=== PATIENT | female | born 1950 | race Caucasian/White ===

== ENCOUNTER → 2019-07-14 11:53 | Outpatient (CLI) | payer OTHER, SELFPAY ==
--- NOTE | ~2019-07-14 | XR_ITS ---
EXAMINATION: XR hip RT min 2V DATE: 07/14/2019 12:18 INDICATION: Right hip primary osteoarthritis. TECHNIQUE: 3 views of right hip were obtained. COMPARISON: Hip and pelvis radiographs 03/26/2013 FINDINGS: Bone alignment is normal. No fracture. There is severe lumbar spondylosis. There is mild ri ght hip osteoarthritis. IMPRESSION: 1. Mild right hip osteoarthritis. Reviewed, dictated and finalized at location A. RNET ASSESSOR
--- NOTE | ~2019-07-14 | XR_ITS ---
EXAMINATION: XR knee RT 3V DATE: 07/14/2019 12:18 INDICATION: Right knee osteoarthritis. TECHNIQUE: 4 views of right knee were obtained. COMPARISON: Right knee radiographs 01/08/2014 FINDINGS: Bone alignment is normal. No fracture. There is severe osteoarthritis of medial compartment and moderate osteoarthritis of lateral and patellofemoral compartments. No knee joint effusion. IMPRESSION: 1. Severe right knee osteoarthritis. Reviewed, dictated and finalized at location A. BI ARCHITECT
== END ==
PROVIDERS: PCP Internal Medicine; Visit Provider Internal Medicine
DX: M17.11 Unilateral primary osteoarthritis, right knee (principal); M16.11 Unilateral primary osteoarthritis, right hip
CPT/HCPCS: 73502; 73562

== ENCOUNTER 2020-01-07 10:36 | Outpatient (CLI) | payer OTHER, SELFPAY ==
[2020-01-07 11:06] LABS: Hematocrit 35.5 % (37.0-47.0); Hemoglobin 11.5 g/dL (12.0-15.0)
[2020-01-07 11:17] LABS: Albumin Level 4.3 g/dL (3.5-5.1); Estimated Glomerular Filt Rate > 60
== END 2020-01-07 10:37 | disposition home or self-care (01) ==
PROVIDERS: PCP Internal Medicine; Visit Provider Orthopaedic Surgery
DX: M17.11 Unilateral primary osteoarthritis, right knee (principal); Z01.812 Encounter for preprocedural laboratory examination
CPT/HCPCS: 36415; 82040; 82565; 85014; 85018

== ENCOUNTER 2020-01-27 11:57 | Outpatient (CLI) | payer OTHER, SELFPAY ==
--- NOTE | 2020-01-27 12:56 | ECG_ITS ---
Measurements Intervals [place] Rate: 68 P: 56 SD: 144 QRS: 7 QRSD: 84 T: 39 QT: 363 QTc: 388 Interpretive Statements SINUS RHYTHM BASELINE ARTIFACT- I, II, III, AVR, AVL, AVF NORMAL ECG Electronically Signed On 01-27-2020 13:12:40 CDT by Ad [place] D.O.
[2020-01-27 13:27] LABS: Basophils Absolute Auto 0.1 K/mm3 (0.0-0.1); Eosinophils Absolute Auto 0.1 K/mm3 (0-0.3); Eosinophils Percent Auto 1.1 % (0-4.4); Hematocrit 38.5 % (37.0-47.0); Hemoglobin 12.5 g/dL (12.0-15.0); Immature Granulocyte Absolute 0.02 K/mm3 (0.00-0.031); Immature Granulocyte Percent A 0.3 % (0-0.5); Lymphocytes Absolute Auto 1.96 K/mm3 (0.9-3.2); Mean Corpuscular HGB Conc 32.5 g/dl (32-36); Mean Corpuscular Hemoglobin 31.6 pg (26-34); Mean Corpuscular Volume 97.2 fl (80-100); Mean Platelet Volume 9.4 fl (7.4-10.4); Monocytes Absolute Auto 0.6 K/mm3 (0.1-0.6); Monocytes Percent Auto 8.6 % (2.6-8.5); Neutrophils Absolute Auto 4.3 K/mm3 (1.3-6.7); Platelet Count Result 335 k/mm3 (150-375); Red Blood Count 3.96 M/mm3 (4.2-5.4); Red Cell Distribution Width 12.3 % (11.5-14.5)
[2020-01-27 13:36] LABS: Urine Cotinine NEGATIVE
[2020-01-27 13:42] LABS: Albumin Level 4.4 g/dL (3.5-5.1); Glucose 89 mg/dL (65-105)
== END 2020-01-27 11:58 | disposition home or self-care (01) ==
LOC: ANHSURGERY 11:59
PROVIDERS: PCP Internal Medicine; Visit Provider Orthopaedic Surgery
DX: Z01.818 Encounter for other preprocedural examination (principal); M17.11 Unilateral primary osteoarthritis, right knee
CPT/HCPCS: 36415; 80307; 82040; 82947; 83036; 85025; 87081; 93005

== ENCOUNTER 2020-02-21 00:35 | Outpatient (CLI) | payer OTHER, SELFPAY ==
[2020-02-21 19:30] LABS: SARS-CoV-2 RNA PCR Negative
== END 2020-02-21 00:36 | disposition home or self-care (01) ==
LOC: ANHCOVIDDT 00:35
PROVIDERS: PCP Internal Medicine; Visit Provider Orthopaedic Surgery
DX: Z01.812 Encounter for preprocedural laboratory examination (principal); Z20.828 Contact with and (suspected) exposure to other viral communicable diseases
CPT/HCPCS: 87635; C9803; U0003

== ENCOUNTER 2020-02-24 00:51 | Day surgery (SDC) | payer OTHER, SELFPAY ==
[2020-01-27 12:28] VITALS: BP 156/70; PULSE 82; RESP 20; TEMP 36.6; O2SAT 100
[2020-01-27 12:57] VITALS: BMI 31.8
--- NOTE | 2020-02-23 08:54 | WPDANESEPPF ---
Anes - Initial Pre Proc Eval Procedure: Operation Date: 02/24/20 10:00 Proposed Procedures p Right Total Knee Arthroplasty - Gunnar Sherman MD Date/Time: 02/23/20 08:54 Surgeon: Gunnar Sherman MD Pre Op Diagnosis: Right Knee OA Patient Data Age: 69 Gender: F Height: 1.57 m Weight: 78.9 kg Last Vital Signs Temp 36.6 C 01/27/20 12:28 Pulse 82 01/27/20 12:28 Resp 20 01/27/20 12:28 BP 156/70 H 01/27/20 12:28 Pulse Ox 100 01/27/20 12:28 Allergies Allergy/AdvReac Type Severity Reaction Status Date / Time No Known Allergies Allergy Unverified 02/24/20 08:56 Home Medications Medication Instructions Recorded Confirmed Type lisinopril 20 mg tablet 20 mg PO DAILY #90 tablet 08/13/19 02/24/20 Rx naproxen 375 mg tablet See Rx Instructions .ROUTE 10/13/19 02/24/20 Rx .COMPLEX #180 tablet escitalopram oxalate 5 mg tablet 5 mg PO DAILY #90 tablet 11/18/19 02/24/20 Rx pravastatin 40 mg PO HS 01/27/20 02/24/20 History trazodone 50 mg PO HS 01/27/20 02/24/20 History Patient hx anesthesia problems: post op nausea/vomiting Family hx anesthesia problems: none PMFSH Past Medical History Medical History (Updated 02/23/20 @ 08:54 by Justin Urbina DO) Acute left-sided low back pain without sciatica Anxiety Closed displaced comminuted fracture of shaft of left humerus Essential (primary) hypertension Influenza A virus present Mixed hyperlipidemia Osteoarthritis of right hip PONV (postoperative nausea and vomiting) Surgical History Surgical History History of open reduction and internal fixation (ORIF) procedure Social History Social History Smoking status: Never smoker Second hand tobacco smoke exposure: No Alcohol intake: never Substance use: never Living arrangements: with family Spiritual care concerns: No Anes - Eval Final PreProcedure Day of Procedure 02/23/20 08:54 Patient weight: obese Heart: regular rate and rhythm Lungs: clear to auscultation and normal air movement Airway: Mallampati scale class II Neurological: alert and oriented Last oral intake: >/= 8 hours ASA classification: III Emergent: no Anesthetic plan: proceed Anesthesia type and monitoring: general LMA and standard monitoring Informed Consent: The patient's anesthetic plan and its attendant risks and benefits were discussed with the patient/family/POA. Questions were solicited and answers provided to the satisfaction of the patient/family/POA.
--- NOTE | 2020-02-23 08:55 | WPDANESPNB ---
Anes - Peripheral Nerve Block Date/Time: 02/23/20 08:55 I have discussed with the patient/family/POA the placement of a peripheral nerve block for post-operative pain management, including associated risks, benefits, complications, and side effects. Alternative methods of post-operative analgesia were detailed. Questions were solicited and answers provided to the satisfaction of the patient/family/POA. Time-Out: A pre-procedural Time-Out was completed immediately before starting the procedure and confirmed: Patient Identification, Site, Procedure, Patient Position and the Availability of Requisite Equipment. Clinical Indications: Acute post-operative pain management requested by the operative surgeon. Nerve Block Insertion Note Anes-nerve block: adductor canal right Patient position: supine Skin prep: chlorhexidine Needle: 22 gauge, stimulating, insulated echogenic needle. Needle length: 80 mm Technique: ultrasound Injectate: bupivacaine 0.5% with epi 5 mcg/ml (30cc) Observations: tolerated well Complications: none Procedure start time:: 1006 Procedure end time:: 1010
[2020-02-24] VITALS (13 sets, daily range): BP systolic 101–135; BP diastolic 42–73; PULSE 73–97; RESP 12–18; TEMP 35.9–36.9; O2SAT 89–100
--- NOTE | ~2020-02-24 | XR_ITS ---
EXAMINATION: XR knee RT 2V DATE: 02/24/2020 12:34 INDICATION: Right total knee arthroplasty. Postop. TECHNIQUE: 2 views of right knee were obtained. COMPARISON: Right knee radiographs 07/14/2019 FINDINGS: There is a total right knee arthroplasty with patellar resurfacing. Tibia demonstrates 8 de grees posterior angulation with respect to the tibial component. No fracture. There is gas in the kne e joint and soft tissues, consistent with recent surgery. IMPRESSION: 1. New total right knee arthroplasty. Reviewed, dictated and finalized at location B.
--- NOTE | 2020-02-24 07:14 | WPDHPUPDATE1 ---
History and Physical Update Update Date/Time: 02/24/20 07:14 History and Physical has been reviewed, including an updated exam of the patient. There are NO changes in the patient's condition. Risks, benefits, and alternatives have been discussed and questions answered. Patient agrees to proceed with procedure.
[2020-02-24] MEDS: TRANEXAMIC ACID 1,000MG/ISO100 1,000 MG/100 ML BAG 200 MG IVPB (08:48)
[2020-02-24] MEDS: LACTATED RINGERS 1,000 ML 30 ML IV CONT ×2 (08:50→12:21)
[2020-02-24] MEDS: ACETAMINOPHEN 500 MG TABLET 1000 MG PO (08:53)
[2020-02-24] MEDS: KETOROLAC 15 MG/ML VIAL (*BKC) IV PUSH (08:53)
[2020-02-24] MEDS: FAMOTIDINE 20 MG/2 ML VIAL IV PUSH (09:05)
[2020-02-24] MEDS: ceFAZolin 2 GM/D5W 50 ML 2 GM/50 ML BAG IVPB (10:21)
[2020-02-24] MEDS: GENTAMICIN BONE CEMENT REFOBACIN 1 EACH TOPICAL (10:49)
--- NOTE | 2020-02-24 12:42 | PM.PROC ---
Procedure Note - Detailed Date of procedure: 02/25/20 Pre-op diagnosis: Right Knee OA Post-op diagnosis: same Procedure performed: Total knee arthroplasty, right Implants: [place] [employer] size 3 cemented femur, size 4 cemented low-profile tibia, 13mm CS polyethylene insert, 32mm asymmetric all poly patellar component. Anesthesia: GETA and regional (subsartorial nerve block) Surgeon: Gunnar Sherman MD Estimated blood loss (mL): 200 Drains: No Complications: None Condition: stable Disposition: PACU Findings: OPERATIVE DETAILS: The patient was given a nerve block preoperatively, and then brought to the operating room. A general anesthetic was administered. The leg was prepped and draped in the usual sterile fashion. The limb was elevated and the tourniquet inflated to 300 mmHg during initial exposure, and cementation. A longitudinal incision was created along the medial border of the patella and patellar tendon, and a minimally invasive optimized mid-vastus approach to the knee was performed. A mild medial release was taken. The knee was then flexed. The osteophytes were carefully removed. The intramedullary guide was placed in the femoral canal. The distal femoral resection was then taken with the oscillating saw. The collateral ligaments were carefully protected. The tibia was carefully exposed. The jig was applied, and the proximal tibia was resected according to preoperative plan. The pain anesthetic mixture was injected into the periarticular tissues. The knee was balanced in extension, and appropriate releases were taken where needed. The anterior cruciate ligament and meniscal remnants were removed. The posterior cruciate ligament was preserved. The patella was measured. Patellar resection was carried out with the oscillating saw. The lug holes drilled. The femur was sized and rotation assessed using a combination of gap balancing, posterior referencing, and the AP axis. The 4 in 1 cutting block was used to finish the femoral cuts after equal gaps were assured. The lug holes were drilled. The osteophytes were carefully removed from the back of the knee. The knee was copiously irrigated with antibiotic solution periodically throughout the procedure. The spacer block was used to confirm equal flexion and extension gaps. Further releases were performed as needed. The tibia was sized and broached. The bony surfaces were prepared for cementing with pulsatile lavage. The real tibial component and femoral components were cemented into position. Excess cement was carefully removed. The polyethylene insert was placed. The patella component was subsequently cemented. Patellar tracking was carefully assessed. No additional releases were required. The wound was closed with #1 Vicryl suture, #2 Quill suture, 2-Gwisbc-yus suture, and 2-0 Strata-fix suture followed by Steri-Strips. A sterile bulky dressing was applied. Meticulous hemostasis was maintained throughout the procedure. There were no complications. The patient was extubated and brought to the recovery room in stable condition after the application of sterile dressing with Cam bandage.
--- NOTE | 2020-02-24 14:00 | ADMGEN ---
This patient, Rochelle Balderrama, was admitted to Medical Room 253-01. Patient/family oriented to hospital policies and general routines including ID bracelet, bed and alarms, visiting hours, pain management, procedures, bathroom and other care routines, personal items, smoking policy, room service/diet, and visiting hours. Valuables list has been completed. Information on how to activate the Rapid Response Team has been discussed. Patient/Family are encouraged to report perceived risks to care and to ask questions if they do not understand what they are told or what they should do.
[2020-02-24] MEDS: SODIUM CHLORIDE 0.9% IV 1,000 ML 125 ML IV CONT (14:30)
[2020-02-24] MEDS: ASPIRIN 81 MG ENTERIC TABLET PO (17:29)
[2020-02-24] MEDS: MELOXICAM 7.5 MG TABLET PO (17:29)
[2020-02-24] MEDS: DOCUSATE SODIUM 100 MG CAPSULE PO (17:29)
[2020-02-24] MEDS: traZODone HCL 50 MG TABLET PO (20:26)
[2020-02-24] MEDS: PRAVASTATIN SODIUM 20 MG TABLET 40 MG PO (20:26)
[2020-02-25] VITALS: BP 100/46; PULSE 70; RESP 18; TEMP 36.4; O2SAT 91
[2020-02-25 04:00] VITALS: BP 106/40; PULSE 76; RESP 18; TEMP 36.4; O2SAT 94
[2020-02-25 06:34] LABS: Basophils Percent Auto 0.2 % (0.2-1.2); Eosinophils Percent Auto 0.1 % (0-4.4); Hematocrit 26.9 % (37.0-47.0); Hemoglobin 8.6 g/dL (12.0-15.0); Immature Granulocyte Absolute 0.06 K/mm3 (0.00-0.031); Immature Granulocyte Percent A 0.5 % (0-0.5); Lymphocytes Absolute Auto 1.42 K/mm3 (0.9-3.2); Lymphocytes Percent Auto 12.6 % (18.3-44.2); Mean Corpuscular Hemoglobin 30.6 pg (26-34); Mean Corpuscular Volume 95.7 fl (80-100); Mean Platelet Volume 9.4 fl (7.4-10.4); Monocytes Absolute Auto 0.9 K/mm3 (0.1-0.6); Monocytes Percent Auto 8.2 % (2.6-8.5); Neutrophils Absolute Auto 8.8 K/mm3 (1.3-6.7); Neutrophils Percent Auto 78.4 % (45.5-73.1); Platelet Count Result 220 k/mm3 (150-375); Red Blood Count 2.81 M/mm3 (4.2-5.4); Red Cell Distribution Width 12.4 % (11.5-14.5); White Blood Count 11.3 K/mm3 (4.5-10.0)
[2020-02-25 06:54] LABS: Anion Gap 4 mmol/L (8-16); Blood Urea Nitrogen 15 mg/dL (7-17); Calcium 8.4 mg/dL (8.4-10.2); Carbon Dioxide 25 mmol/L (22-30); Chloride 103 mmol/L (98-107); Estimated CRCL calculation 70 ml/min; Estimated Glomerular Filt Rate > 60; Glucose 85 mg/dL (65-105); Potassium 4.1 mmol/L (3.4-5.0); Sodium 132 mmol/L (137-145)
[2020-02-25 08:46] VITALS: O2SAT 94
[2020-02-25] MEDS: MELOXICAM 7.5 MG TABLET PO (09:35)
[2020-02-25] MEDS: ESCITALOPRAM OXALATE 5 MG TABLET PO (09:35)
[2020-02-25] MEDS: ASPIRIN 81 MG ENTERIC TABLET PO (09:35)
[2020-02-25] MEDS: DOCUSATE SODIUM 100 MG CAPSULE PO (09:35)
[2020-02-25] MEDS: lisinopriL 20 MG TABLET PO (09:35)
[2020-02-25 09:53] VITALS: BP 100/77; PULSE 74; RESP 18; TEMP 36.7; O2SAT 97
--- NOTE | 2020-02-25 11:44 | WPDANESPN ---
Anes - Prog Note Post-Op Date/Time: 02/25/20 11:44 Cardiovascular status: normal Respiratory status: normal Airway patency: baseline Mental status: baseline Post-Op hydration status: normal Vital Signs: Last Vital Signs Temp 36.7 C 02/25/20 09:53 Pulse 74 02/25/20 09:53 Resp 18 02/25/20 09:53 BP 100/77 02/25/20 09:53 Pulse Ox 97 02/25/20 09:53 I/O: Intake & Output 02/24/20 02/25/20 02/25/20 23:59 07:59 15:59 Intake Total 1480 350 290 Output Total 200 300 Balance 1480 150 -10 Laboratory Tests 02/25/20 05:59 02/25/20 05:59 02/25/20 02/25/20 05:59 05:59 WBC 11.3 H RBC 2.81 L Hgb 8.6 L D Hct 26.9 L MCV 95.7 MCH 30.6 MCHC 32.0 RDW 12.4 Plt Count 220 MPV 9.4 Immature Gran % (Auto) 0.5 Neut % (Auto) 78.4 H Lymph % (Auto) 12.6 L [place] % (Auto) 8.2 Eos % (Auto) 0.1 Baso % (Auto) 0.2 Lymph # (Auto) 1.42 [place] # (Auto) 0.9 H Eos # (Auto) 0.0 Baso # (Auto) 0.0 Abs Immat Gran (auto) 0.06 H Absolute Neuts (auto) 8.8 H Absolute Nucleated RBC 0.0 Nucleated RBC % 0.0 Sodium 132 L Potassium 4.1 Chloride 103 Carbon Dioxide 25 Anion Gap 4 L BUN 15 Creatinine 0.60 L Estim Creat Clear Calc 70 Estimated GFR > 60 Glucose 85 Calcium 8.4 Post-procedural complaints: none Patient Feedback: Patient satisfied with anesthetic care.
--- NOTE | 2020-02-25 11:57 | PM.DS ---
DS: Admitting Diagnosis Admitting Diagnosis Admitting Diagnosis: Right Knee OA DS: Discharge Diagnosis Discharge Diagnosis (1) History of total replacement of right shoulder joint: Code(s): Z96.611 - Presence of right artificial shoulder joint Status: Acute DS: Summary Hospital Course Reason for hospitalization: Total knee arthroplasty. Hospital Course: Tolerated surgery well. Progressed appropriately with therapy. Status at Discharge Functional status at discharge: uses cane/walker Overall status at discharge: patient is progressing back to baseline Time Spent with Patient Time attestation: Total time spent providing and/or coordinating discharge services: Exam Const: General: no acute distress Resp: Effort & Inspection: normal respiratory effort Skin: Other: Wound healing well. Mepilex dressing intact. No hematoma or drainage. Neuro: Motor exam (neuro): 5/5 motor strength present throughout Sensory Exam: normal sensation Psych: Mental Status: mental status grossly normal Speech and movement: Normal speech and movement present DS: Data Data Completed and Pending Labs on day of discharge: Labs from last 24 hours 02/25/20 02/25/20 05:59 05:59 WBC 11.3 H RBC 2.81 L Hgb 8.6 L D Hct 26.9 L MCV 95.7 MCH 30.6 MCHC 32.0 RDW 12.4 Plt Count 220 MPV 9.4 Immature Gran % (Auto) 0.5 Neut % (Auto) 78.4 H Lymph % (Auto) 12.6 L [place] % (Auto) 8.2 Eos % (Auto) 0.1 Baso % (Auto) 0.2 Lymph # (Auto) 1.42 [place] # (Auto) 0.9 H Eos # (Auto) 0.0 Baso # (Auto) 0.0 Abs Immat Gran (auto) 0.06 H Absolute Neuts (auto) 8.8 H Absolute Nucleated RBC 0.0 Nucleated RBC % 0.0 Sodium 132 L Potassium 4.1 Chloride 103 Carbon Dioxide 25 Anion Gap 4 L BUN 15 Creatinine 0.60 L Estim Creat Clear Calc 70 Estimated GFR > 60 Glucose 85 Calcium 8.4 Discharge Plan Discharge Patient Disposition: Home, Self-Care Discharge Instructions: See instruction sheet. Patient Instructions: Joint Replacement Surgery (DC), Knee Replacement (DC) Follow-up/Referrals: Gunnar Sherman MD [Physician] - Discharge Medications: New oxycodone-acetaminophen 5-325 mg tablet 1 - 2 tablet PO Q4-6H MDD 8 tablets PRN (Reason: pain) Qty: 30 RF: 0 Continued trazodone 50 mg tablet 50 mg PO HS RF: 0 pravastatin 40 mg tablet 40 mg PO HS RF: 0 lisinopril 20 mg tablet 20 mg PO DAILY Qty: 90 RF: 4 naproxen 375 mg tablet See Rx Instructions .ROUTE .COMPLEX Qty: 180 RF: 0 escitalopram oxalate 5 mg tablet 5 mg PO DAILY Qty: 90 RF: 4 Quality VTE Prophylaxis VTE prophylaxis: mechanical ordered (DEON mariee and Lolis)
== END 2020-02-25 12:45 | disposition home or self-care (01) ==
LOC: ANHSURGERY 08:07 → ANH2MED 13:29
PROVIDERS: PCP Internal Medicine; Visit Provider Orthopaedic Surgery
PROC: (CPT 27447; principal; 2020-02-24 10:00)
DX: M17.11 Unilateral primary osteoarthritis, right knee (principal); G89.18 Other acute postprocedural pain; Z79.899 Other long term (current) drug therapy
CPT/HCPCS: 27447; 64447; 36415; 73560; 80048; 85025; 86850; 86900; 86901; 97110; 97116; 97161; 97165; 97530; A9270; C1713; C1776; J0131; J0171; J0690; J1100; J1885; J2250; J2270; J2405; J2704; J2795; J3010; J7030; J7120

== ENCOUNTER 2020-07-15 10:40 | Outpatient (CLI) | payer OTHER, SELFPAY ==
--- NOTE | ~2020-07-15 | MM_ITS ---
EXAMINATION: MM screening jeremy BI w nazia HISTORY: Screening TECHNIQUE: Craniocaudal and mediolateral oblique 3-D tomosynthesis images were obtained and synthetic 2-D images were generated. CAD analysis was submitted and interpreted. COMPARISON: Comparison to multiple prior studies sequentially, with oldest reviewed study dated 09/2016. BREAST PARENCHYMAL COMPOSITION: There are scattered areas of fibroglandular density. FINDINGS: There is no evidence of suspicious mass, calcification, or architectural distortion to sugg est malignancy in either breast. There has been no suspicious interval change. IMPRESSION: 1. No mammographic evidence of malignancy. 2. Recommend routine screening mammography in one year. BI-RADS Category 1: Negative Reviewed, dictated and finalized at location A. BAG FRAMER
== END 2020-07-15 10:41 | disposition home or self-care (01) ==
LOC: ANHIMG 10:42
PROVIDERS: PCP Internal Medicine; Visit Provider Internal Medicine
DX: Z12.31 Encounter for screening mammogram for malignant neoplasm of breast (principal)
CPT/HCPCS: 77063; 77067

== ENCOUNTER → 2020-08-02 10:34 | Outpatient (CLI) | payer OTHER, SELFPAY ==
--- NOTE | ~2020-08-02 | XR_ITS ---
XR hip LT min 3V w AP pelvis DATE: 08/02/2020 10:52 INDICATION: Left hip pain TECHNIQUE: AP pelvis. AP and lateral views of the left hip COMPARISON: 07/20/2015 pelvis and left hip FINDINGS: Prominent degenerative disc disease is noted L3-4, L4-5 and L5-S1. The pubic symphysis and sacroiliac joints are intact. No pelvic fracture or bone destruction is evident. No fracture, dislocation, avascular necrosis or bone destruction of the left hip is detected. Diffuse osteopenia. Incidentally noted is a large amount of fecal material in the colon. IMPRESSION: Multilevel degenerative disc disease of the lumbar spine Osteopenia Reviewed, dictated and finalized at location A. TICS NURSE
== END ==
PROVIDERS: PCP Internal Medicine; Visit Provider Internal Medicine
DX: M47.817 Spondylosis without myelopathy or radiculopathy, lumbosacral region (principal); M85.852 Other specified disorders of bone density and structure, left thigh
CPT/HCPCS: 73502

== ENCOUNTER 2020-09-02 10:28 | Outpatient (CLI) | payer OTHER, MEDICARE, SELFPAY | END 2020-09-02 10:29 | disposition home or self-care (01) | PROVIDERS: PCP Internal Medicine | DX: Z23 Encounter for immunization (principal) | CPT/HCPCS: 0001A; 91300 ==

== ENCOUNTER 2020-09-23 10:26 | Outpatient (CLI) | payer OTHER, MEDICARE, SELFPAY | END 2020-09-23 10:27 | disposition home or self-care (01) | LOC: ANHCOVIDVC 10:26 | PROVIDERS: PCP Internal Medicine | DX: Z23 Encounter for immunization (principal) | CPT/HCPCS: 0002A; 91300 ==

== ENCOUNTER 2021-05-05 10:21 | Outpatient (CLI) | payer OTHER, SELFPAY ==
--- NOTE | ~2021-05-05 | MR_ITS ---
EXAMINATION: MR lumbar spine wo con EXAM DATE: 05/05/2021 11:27 INDICATION: Lumbar radiculopathy. TECHNIQUE: Multi-sequential, multiplanar MR images of the lumbar spine were obtained without contrast . Sagittal T1, T2, T2 fat saturation images. Axial T2 weighted images. There is no prior study for comparison. FINDINGS: There is moderate lumbar dextroscoliosis. Moderate to severe disc disease L3-S1, moderate a t L1-joint L2-3. The conus medullaris terminates at the T12-L1 level and has normal signal intensity and morphology. The vertebral bodies are aligned in the AP dimension. There are no suspicious marrow signal abnormalities. Paraspinal soft tissue is unremarkable. Level by level evaluation: T12-L1: There is a mild diffuse disc bulge. Facet arthropathy: Mild. Neural foraminal stenosis: No stenosis. Central canal stenosis: No stenosis. L1-L2: There is a mild to moderate diffuse disc bulge. Facet arthropathy: Mild. Neural foraminal stenosis: Mild to moderate left. Central canal stenosis: Mild. L2-L3: There is a mild to moderate diffuse disc bulge. Facet arthropathy: Moderate. Neural foraminal stenosis: Moderate left. Central canal stenosis: Mild. L3-L4: There is a moderate diffuse disc bulge. Facet arthropathy: Moderate. Neural foraminal stenosis: Moderate left, mild right. Central canal stenosis: Mild to moderate. L4-L5: There is a moderate diffuse disc bulge. Facet arthropathy: Moderate. Neural foraminal stenosis: Moderate right, small to moderate left. Central canal stenosis: Moderate. L5-S1: There is a moderate diffuse disc bulge. Facet arthropathy: Moderate. Neural foraminal stenosis: Moderate bilateral, right greater than left. Central canal stenosis: Moderate. IMPRESSION: 1. Moderate lumbar dextroscoliosis 2. Moderate to severe spondylosis as above. Reviewed, dictated and finalized at location A.
== END 2021-05-05 10:22 | disposition home or self-care (01) ==
LOC: ANHIMG 10:21
PROVIDERS: PCP Internal Medicine; Visit Provider Nurse Practitioner Family
DX: M47.26 Other spondylosis with radiculopathy, lumbar region (principal)
CPT/HCPCS: 72148

== ENCOUNTER → 2021-08-18 09:24 | Outpatient (CLI) | payer OTHER, SELFPAY ==
[2021-08-18 16:52] LABS: SARS-CoV-2 RNA PCR Negative
== END ==
PROVIDERS: PCP Internal Medicine; Visit Provider Internal Medicine
DX: R68.89 Other general symptoms and signs (principal); Z20.822 Contact with and (suspected) exposure to COVID-19
CPT/HCPCS: C9803; U0003; U0005

== ENCOUNTER 2022-05-01 10:37 | Outpatient (CLI) | payer OTHER, SELFPAY ==
--- NOTE | ~2022-05-01 | MR_ITS ---
EXAMINATION: MR lumbar spine wo con DATE: 05/01/2022 11:58 INDICATION: Chronic intractable low back pain with left-sided sciatica. TECHNIQUE: Magnetic resonance imaging (MRI) of the lumbar spine was performed without intravenous con trast. COMPARISON: Lumbar spine MRI 05/05/2021 FINDINGS: There is 27 degrees dextroscoliosis of lumbar spine. Vertebral body heights are normal. The re is moderately decreased disc height at T12-L1 and severely decreased disc height from L1-L2 throug h L5-S1 with endplate remodeling. The distal spinal cord signal intensity is normal. The conus medull pete is at T12. There is peripheral displacement of the cauda equina at L5 and S1, consistent with ar achnoiditis. The following disc levels are specifically discussed: L1-L2: The disc is bulging and has an annular fissure. There is mild right and moderate left facet adriana int osteoarthritis. There is mild bilateral neural foraminal stenosis. There is mild central canal st enosis. L2-L3: The disc is bulging and has an annular fissure. There is moderate bilateral facet joint osteoa rthritis. There is mild right and moderate left neural foraminal stenosis. There is mild central yordan l stenosis. L3-L4: The disc is bulging and has an annular fissure. There is moderate right and severe left facet joint osteoarthritis. There is mild right and moderate left neural foraminal stenosis. There is mild central canal stenosis. L4-L5: The disc is bulging and has an annular fissure. There is severe bilateral facet joint osteoart hritis. There is moderate right and mild left neural foraminal stenosis. There is mild central canal stenosis. L5-S1: The disc is bulging and has an annular fissure. There is moderate bilateral facet joint osteoa rthritis. There is mild bilateral neural foraminal stenosis. There is mild central canal stenosis. IMPRESSION: 1. Severe lumbar spondylosis, stable from 05/05/21. 2. Lumbar dextroscoliosis. 3. 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 Reviewed, dictated and finalized at location A.
== END 2022-05-01 10:38 | disposition home or self-care (01) ==
PROVIDERS: PCP Family Medicine; Visit Provider Family Medicine
DX: G89.29 Other chronic pain (principal); M54.50 Low back pain, unspecified; M43.06 Spondylolysis, lumbar region; M41.86 Other forms of scoliosis, lumbar region; G03.9 Meningitis, unspecified
CPT/HCPCS: 72148

== ENCOUNTER 2022-05-30 08:14 | Outpatient (CLI) | payer OTHER, SELFPAY ==
[2022-05-30 19:00] LABS: Basophils Absolute Auto 0.1 K/mm3 (0.0-0.1); Basophils Percent Auto 0.8 % (0.2-1.2); Eosinophils Absolute Auto 0.1 K/mm3 (0-0.3); Eosinophils Percent Auto 0.9 % (0-4.4); Hematocrit 40.4 % (37.0-47.0); Hemoglobin 12.8 g/dL (12.0-15.0); Immature Granulocyte Absolute 0.03 K/mm3 (0.00-0.031); Immature Granulocyte Percent A 0.4 % (0-0.5); Lymphocytes Absolute Auto 1.74 K/mm3 (0.9-3.2); Lymphocytes Percent Auto 22.1 % (18.3-44.2); Mean Corpuscular HGB Conc 31.7 g/dl (32-36); Mean Corpuscular Hemoglobin 30.9 pg (26-34); Mean Corpuscular Volume 97.6 fl (80-100); Mean Platelet Volume 9.3 fl (7.4-10.4); Monocytes Absolute Auto 0.6 K/mm3 (0.1-0.6); Monocytes Percent Auto 7.2 % (2.6-8.5); Neutrophils Absolute Auto 5.4 K/mm3 (1.3-6.7); Neutrophils Percent Auto 68.6 % (45.5-73.1); Platelet Count Result 373 k/mm3 (150-375); Red Blood Count 4.14 M/mm3 (4.2-5.4); Red Cell Distribution Width 13.1 % (11.5-14.5); White Blood Count 7.9 K/mm3 (4.5-10.0)
[2022-05-30 19:35] LABS: Alanine Aminotransferase 17 U/L (6-35); Albumin Level 4.6 g/dL (3.5-5.1); Alkaline Phosphatase 87 U/L (38-126); Anion Gap 10 mmol/L (8-16); Aspartate Amino Transferase 49 U/L (14-36); Bilirubin,Total 0.5 mg/dL (0.2-1.3); Blood Urea Nitrogen 13 mg/dL (7-17); Calcium 9.8 mg/dL (8.4-10.2); Carbon Dioxide 27 mmol/L (22-30); Chloride 103 mmol/L (98-107); Cholesterol 192 mg/dL (0-200); Estimated Glomerular Filt Rate > 60; Glucose 72 mg/dL (65-110); HDL Direct 63 mg/dL; Potassium 4.4 mmol/L (3.4-5.0); Sodium 140 mmol/L (137-145); Triglycerides 119 mg/dL (<150)
[2022-05-30 19:46] LABS: LDL Cholesterol Direct 78 mg/dL
[2022-05-30 20:52] LABS: Hemoglobin A1C 5.3 % (<5.7)
== END 2022-05-30 08:15 | disposition home or self-care (01) ==
LOC: ANHGOSHLAB 08:17
PROVIDERS: PCP Family Medicine; Visit Provider Family Medicine
DX: R73.03 Prediabetes (principal); I10 Essential (primary) hypertension; E78.2 Mixed hyperlipidemia; R53.83 Other fatigue
CPT/HCPCS: 36415; 80053; 80061; 83036; 85025

== ENCOUNTER 2022-12-22 13:26 | Outpatient (CLI) | payer OTHER, SELFPAY ==
--- NOTE | ~2022-12-22 | MM_ITS ---
EXAMINATION: MM screening jeremy BI w nazia HISTORY: Screening mammogram TECHNIQUE: Craniocaudal and mediolateral oblique 3-D tomosynthesis images were obtained and synthetic 2-D images were generated. CAD analysis was submitted and interpreted. COMPARISON: 07/15/2020, 01/2017 bilateral screening mammogram examinations BREAST PARENCHYMAL COMPOSITION: The breasts are almost entirely fatty. FINDINGS: There is no evidence of suspicious mass, calcification, or architectural distortion to sugg est malignancy in either breast. There has been no suspicious interval change. IMPRESSION: 1. No mammographic evidence of malignancy. 2. Recommend routine screening mammography in one year. BI-RADS Category 1: Negative Reviewed, dictated and finalized at location A.
== END 2022-12-22 13:27 | disposition home or self-care (01) ==
LOC: ANHIMG 13:28
PROVIDERS: PCP Family Medicine; Visit Provider Family Medicine
DX: Z12.31 Encounter for screening mammogram for malignant neoplasm of breast (principal)
CPT/HCPCS: 77063; 77067

== ENCOUNTER 2023-02-09 18:29 | Emergency (ER) | payer OTHER, SELFPAY ==
--- NOTE | 2023-02-09 18:34 | ED.URI ---
HPI - URI/Sore Throat General Chief Complaint: Upper Respiratory Infection Stated Complaint: Sinus infection symptoms Time Seen by Provider: 02/09/23 18:34 Source: patient Mode of arrival: ambulatory Limitations: no limitations History of Present Illness HPI Narrative: Patient is a 72-year-old female who presents with yellow mucus, fever, cough, sore throat and fatigue for 1 day. Patient has taken V[place] cold flu and [place] cold and Flu with no relief. Denies any pain just states she does not feel well. Does have seasonal allergies and uses Flonase daily. States she has never had COVID. Related Data Allergies Allergy/AdvReac Type Severity Reaction Status Date / Time No Known Allergies Allergy Verified 02/09/23 18:36 Review of Systems Review of Systems: All systems reviewed & are unremarkable except as noted in HPI and below Constitutional: Constitutional: Denies body ache(s), Denies chills, Reports fatigue, Reports fever(s), Denies headache(s), Denies malaise and Denies weakness Eyes: Eyes: Denies blurry vision, Denies itchy eyes and Denies loss of vision ENT: Denies otalgia, Denies headache(s), Reports nasal congestion, Denies sinus pain and Reports sore throat Cardiovascular: Cardiovascular: Denies chest pain, Denies irregular heart rhythm and Denies dyspnea Respiratory: Respiratory: Reports cough and Denies dyspnea Gastrointestinal: Gastrointestinal: Denies abdominal pain, Denies diarrhea, Denies nausea and Denies vomiting Musculoskeletal: Musculoskeletal: Denies back pain, Denies myalgias and Denies arthralgias Integumentary/Breasts: Skin/Breast: Denies pruritus and Denies rash Neurologic: Denies headache(s), Denies loss of vision and Denies weakness Psychiatric: Psychiatric: Reports no additional psychiatric complaints Endocrine: Endocrine: Denies fatigue Allergic/Immunologic: Allergic/Immunologic: Denies itchy eyes PMFSH Past Medical History Medical History Acute left-sided low back pain without sciatica Anxiety Closed displaced comminuted fracture of shaft of left humerus Essential (primary) hypertension Influenza A virus present Mixed hyperlipidemia Osteoarthritis of right hip PONV (postoperative nausea and vomiting) Screen for colon cancer Surgical History Surgical History History of open reduction and internal fixation (ORIF) procedure History of total replacement of right shoulder joint History of total right knee replacement (~02/24/20) Family History Family History Father Acute myocardial infarction Other Family history of arthritis Social History Social History Smoking status: Never smoker Second hand tobacco smoke exposure: No Alcohol intake: never Substance use: never Substance use type: does not use Lack of Transportation: No Lack of Food: Never True Current Housing: I Have Housing Concerned About Future Housing: No Difficulty Paying Gas/Electric Bills: No Difficulty Paying for Meds: No Currently Unemployed: No Education: High School Diploma/GED Difficulty w/ Childcare or Family Care: No Living arrangements: with family Additional living arrangements comments: Occupation/Education: retired Gender identity (if verbalized by the patient): Female Spiritual care concerns: No Agree to blood products: Yes Comments At time of signature, agree with nursing past medical, surgical, social and family history. There is no relevant family history pertinent to the presenting complaint. Exam Const: General: cooperative, healthy appearing, comfortable, no acute distress, diaphoretic and well nourished Nutritional Appearance: well nourished Orientation/consciousness: patient oriented x3 Limitations: no limitations H
[2023-02-09 18:38] VITALS: BP 110/80; PULSE 77; RESP 16; TEMP 36.2; O2SAT 99
== END 2023-02-09 19:07 | disposition home or self-care (01) ==
PROVIDERS: Emergency Provider Nurse Practitioner Family; PCP Family Medicine
DX: U07.1 COVID-19 (principal); I10 Essential (primary) hypertension; E78.2 Mixed hyperlipidemia; M16.11 Unilateral primary osteoarthritis, right hip; Z96.611 Presence of right artificial shoulder joint; Z96.651 Presence of right artificial knee joint
CPT/HCPCS: 87081; 87426; 87880; 99213; C9803; G0463

== ENCOUNTER 2023-06-15 09:34 | Outpatient (CLI) | payer OTHER, SELFPAY ==
[2023-06-15 13:10] LABS: Thyroid Stimulating Hormone Reflex 0.409 uIU/mL (0.465-4.68)
[2023-06-15 19:34] LABS: Free T4 Free Thyroxine Reflex 1.07 ng/dL (0.78-2.19)
[2023-06-15 20:59] LABS: Total Triiodothyronine (T3) 1.09 NG/ML (0.97-1.69)
== END 2023-06-15 09:35 | disposition home or self-care (01) ==
LOC: ANHGOSHLAB 09:35
PROVIDERS: PCP Family Medicine; Visit Provider Family Medicine
DX: E05.90 Thyrotoxicosis, unspecified without thyrotoxic crisis or storm (principal)
CPT/HCPCS: 36415; 84439; 84443; 84480

== ENCOUNTER 2023-08-21 13:15 | Emergency (ER) | payer OTHER, SELFPAY ==
--- NOTE | 2023-08-21 13:22 | ED.URI ---
HPI - URI/Sore Throat General Chief Complaint: Upper Respiratory Infection Stated Complaint: HEADACHE/SORE THROAT/EARS POPPING/DIZZY Time Seen by Provider: 08/21/23 14:02 Source: patient and RN notes reviewed Mode of arrival: ambulatory Limitations: no limitations History of Present Illness HPI Narrative: 73-year-old female presents concern for ache, sore throat, ears popping, dizziness. Reports body aches. Reports symptoms started over the weekend worsened yesterday. She reports she took 2 leftover penicillin that she had at home. She denies taking any [id number] medications for her symptoms. She denies nausea, vomiting, abdominal pain, dysuria, frequency, urgency. MD elicited complaint: sore throat Related Data Allergies Allergy/AdvReac Type Severity Reaction Status Date / Time No Known Allergies Allergy Verified 08/21/23 13:44 Review of Systems Review of Systems: CONSTITUTIONAL: Reports malaise. Denies chills, sweats, or fever. EYES: Denies visual changes, redness, or discharge. ENT: Reports rhinorrhea, congestion, otalgia and sore throat. CARDIOVASCULAR: Denies chest pain, palpitations, or edema. RESPIRATORY: Denies cough. Denies dyspnea. GASTROINTESTINAL: Denies abdominal pain, nausea, vomiting, diarrhea SKIN: Denies rash or itching. MUSCULOSKELETAL: Reports myalgia. NEUROLOGIC: Reports headache. All systems reviewed & are unremarkable except as noted in HPI and below PMFSH Past Medical History Medical History Acute left-sided low back pain without sciatica Anxiety Closed displaced comminuted fracture of shaft of left humerus Essential (primary) hypertension Influenza A virus present Mixed hyperlipidemia Osteoarthritis of right hip PONV (postoperative nausea and vomiting) Screen for colon cancer Surgical History Surgical History History of open reduction and internal fixation (ORIF) procedure History of total replacement of right shoulder joint History of total right knee replacement (~02/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) Family History Family History Father Acute myocardial infarction Other Family history of arthritis Social History Social History Smoking status: Never smoker Second hand tobacco smoke exposure: No Alcohol intake: never Substance use: never Substance use type: does not use Lack of Transportation: No Lack of Food: Never True Current Housing: I Have Housing Concerned About Future Housing: No Difficulty Paying Gas/Electric Bills: No Difficulty Paying for Meds: No Currently Unemployed: No Education: High School Diploma/GED Difficulty w/ Childcare or Family Care: No Living arrangements: with family Additional living arrangements comments: Occupation/Education: retired Gender identity (if verbalized by the patient): Female Spiritual care concerns: No Agree to blood products: Yes Comments At time of signature, agree with nursing past medical, surgical, social and family history. There is no relevant family history pertinent to the presenting complaint Exam Narrative: GENERAL: Well-appearing, well-nourished, and in no acute distress. HEAD: Normocephalic EYES: PERRLA, conjunctivae clear ENT: Nares clear. Mucous membranes moist. TM pearly caicedo with sharp light reflex bilaterally; no tragal tenderness. Oropharynx not erythematous without lesions. Tonsils not enlarged and without exudate, no drooling, no hoarseness, no trismus, uvula midline. NECK: Supple. No lymphadenopathy CHEST: Clear to auscultation, breath sounds equal. No wheezing, rhonchi, rales, or stridor. No respiratory distress, speaks in full sentences. HEART: Regular rate and rhythm. No murmur heard. SKIN: Warm, dry, no rash. NEURO: Alert and oriented x3. PSYCH: Normal mood an
[2023-08-21 13:36] VITALS: BP 123/80; PULSE 83; RESP 16; TEMP 36.9; O2SAT 98
== END 2023-08-21 14:05 | disposition home or self-care (01) ==
PROVIDERS: Emergency Provider Nurse Practitioner; PCP Family Medicine
DX: B34.9 Viral infection, unspecified (principal); Z20.822 Contact with and (suspected) exposure to COVID-19; I10 Essential (primary) hypertension; E78.2 Mixed hyperlipidemia; M16.11 Unilateral primary osteoarthritis, right hip; Z96.611 Presence of right artificial shoulder joint; Z96.651 Presence of right artificial knee joint; F41.9 Anxiety disorder, unspecified
CPT/HCPCS: 87081; 87426; 87804; 87880; 99213; G0463

== ENCOUNTER 2023-11-21 10:14 | Emergency (ER) | payer OTHER, SELFPAY ==
[2023-11-21] VITALS (25 sets, daily range): BP systolic 100–126; BP diastolic 61–78; PULSE 72–83; RESP 11–24; TEMP 36.6; O2SAT 90–100
--- NOTE | ~2023-11-21 | XR_ITS ---
XR chest 2V DATE: 11/21/2023 11:32 INDICATION: Chest tightness, radiating to left TECHNIQUE: PA and lateral views COMPARISON: 01/20/2009 2 view chest FINDINGS: Heart size is within normal range. No hilar or mediastinal enlargement. Moderate bilateral hyperinflation. No pulmonary infiltrate or consolidation, pleural effusion or pulm onary vascular congestion or pneumothorax is detected. Plate and screws along the left humeral shaft. Diffuse osteopenia. There is moderate anterior wedging compression fracture deformity of approximatel y T6, new since 01/20/2009. Mild thoracic levoscoliosis. Prominent degenerative spurring of the thorac olumbar area. IMPRESSION: Moderate hyperinflation; no active pulmonary disease Osteopenia, moderate compression fracture of approximately T6 Reviewed, dictated and finalized at location B.
--- NOTE | ~2023-11-21 | CT_ITS ---
EXAMINATION: CTA chest PE protocol DATE: 11/21/2023 17:07 INDICATION: Left-sided pleuritic chest pain. TECHNIQUE: Computed tomography angiography (CTA) of the chest was performed with 100 mL Omnipaque-350 intravenous contrast timed to evaluate the pulmonary arteries. Coronal maximum intensity projection 3D-reconstructions were created by the technologist. Automated exposure control and iterative reconst ruction technique were employed. The dose-length product was 240.29 mGy-cm. COMPARISON: Chest 2 views 11/21/2023 FINDINGS: The lungs demonstrate minimal atelectasis. No pleural effusion. There is a small sliding hi atal hernia. The heart size is normal. No pericardial effusion. There is no pulmonary embolus. There is mild thoracic spondylosis. There is a chronic burst fracture of T6. IMPRESSION: 1. No pulmonary embolus. 2. Small sliding hiatal hernia. Reviewed, dictated and finalized at location A.
--- NOTE | 2023-11-21 10:19 | ECG_ITS ---
SEE SCANNED COPY FOR CONFIRMED REPORT MTDD
[2023-11-21 10:48] LABS: Basophils Absolute Auto 0.1 K/mm3 (0.0-0.1); Basophils Percent Auto 0.8 % (0.2-1.2); Eosinophils Absolute Auto 0.1 K/mm3 (0-0.3); Eosinophils Percent Auto 0.6 % (0-4.4); Hematocrit 36.7 % (37.0-47.0); Hemoglobin 11.6 g/dL (12.0-15.0); Immature Granulocyte Absolute 0.03 K/mm3 (0.00-0.031); Immature Granulocyte Percent A 0.3 % (0-0.5); Lymphocytes Absolute Auto 1.91 K/mm3 (0.9-3.2); Lymphocytes Percent Auto 20.5 % (18.3-44.2); Mean Corpuscular HGB Conc 31.6 g/dl (32-36); Mean Corpuscular Hemoglobin 31.9 pg (26-34); Mean Corpuscular Volume 100.8 fl (80-100); Mean Platelet Volume 8.5 fl (7.4-10.4); Monocytes Absolute Auto 0.7 K/mm3 (0.1-0.6); Monocytes Percent Auto 7.8 % (2.6-8.5); Neutrophils Absolute Auto 6.5 K/mm3 (1.3-6.7); Platelet Count Result 405 k/mm3 (150-375); Red Blood Count 3.64 M/mm3 (4.2-5.4); Red Cell Distribution Width 12.5 % (11.5-14.5); White Blood Count 9.3 K/mm3 (4.5-10.0)
[2023-11-21 10:58] LABS: Alanine Aminotransferase 16 U/L (6-35); Albumin Level 4.5 g/dL (3.5-5.1); Alkaline Phosphatase 95 U/L (38-126); Anion Gap 4 mmol/L (4-12); Aspartate Amino Transferase 29 U/L (14-36); Bilirubin,Total 0.4 mg/dL (0.2-1.3); Blood Urea Nitrogen 16 mg/dL (7-17); Calcium 9.8 mg/dL (8.4-10.2); Carbon Dioxide 29 mmol/L (22-30); Chloride 102 mmol/L (98-107); Estimated CRCL calculation 53 ml/min; Estimated Glomerular Filt Rate > 60; Glucose 96 mg/dL (65-110); Lipase 83 U/L (23-300); Potassium 4.7 mmol/L (3.4-5.0); Sodium 135 mmol/L (137-145)
[2023-11-21 11:10] LABS: Troponin I < 0.012 ng/mL (0.000-0.034)
[2023-11-21 11:13] LABS: INR 0.9; Prothrombin Time 12.6 Seconds (11.1-14.7)
[2023-11-21 11:14] LABS: Partial Thromboplastin Time 37.8 Seconds (22.3-36.8)
--- NOTE | 2023-11-21 13:42 | ECG_ITS ---
SEE SCANNED COPY FOR CONFIRMED REPORT MTDD
--- NOTE | 2023-11-21 14:13 | ED.GENADULT ---
HPI - General Adult General Chief complaint: Chest Pain Stated complaint: chest pain Time Seen by Provider: 11/21/23 13:07 History of Present Illness HPI narrative: This is a 73-year-old female presenting ED for evaluation of chest pain x1 year. Patient has been having a sharp pain beneath her left breast. This occurs every day for several hours per day before resolving. It does not radiate. It comes and goes. No exacerbating alleviating factors. No fevers chills productive cough, difficulty breathing lower extremity edema or history of blood clots. Related Data Allergies Allergy/AdvReac Type Severity Reaction Status Date / Time No Known Allergies Allergy Verified 11/21/23 12:29 [facility], [facility] Past Medical History Medical History Acute left-sided low back pain without sciatica Anxiety Closed displaced comminuted fracture of shaft of left humerus Essential (primary) hypertension Influenza A virus present Mixed hyperlipidemia Osteoarthritis of right hip PONV (postoperative nausea and vomiting) Screen for colon cancer Surgical History Surgical History History of open reduction and internal fixation (ORIF) procedure History of total replacement of right shoulder joint History of total right knee replacement (~02/24/20) Family History Family History Father Acute myocardial infarction Other Family history of arthritis Social History Social History Smoking status: Never smoker Second hand tobacco smoke exposure: No Alcohol intake: never Substance use: never Substance use type: does not use Lack of Transportation: No Lack of Food: Never True Current Housing: I Have Housing Concerned About Future Housing: No Difficulty Paying Gas/Electric Bills: No Difficulty Paying for Meds: No Currently Unemployed: No Education: High School Diploma/GED Difficulty w/ Childcare or Family Care: No Living arrangements: with family Additional living arrangements comments: Occupation/Education: retired Gender identity (if verbalized by the patient): Female Spiritual care concerns: No Agree to blood products: Yes Exam Narrative: APPEARANCE: No apparent distress. Well-appearing stable vital signs Head: atraumatic. EYES: EOMI, NOSE: Atraumatic NECK: Trachea midline RESPIRATORY: No increased rate of breathing CTAB CARDIOVASCULAR: RRR, peripheral edema ABDOMINAL: Non-distended soft nontender MUSCULOSKELETAl: No obvious deformities NEURO: Alert. Moving 4/4 extremities SKIN:: Warm, dry. Normal color PSYCHIATRIC: Normal affect Course Vital Signs Vital signs: Vital Signs Temperature 97.9 F 11/21/23 10:26 Pulse Rate 83 11/21/23 10:26 Respiratory Rate 16 11/21/23 10:26 Blood Pressure 123/70 11/21/23 10:26 Pulse Oximetry 100 11/21/23 10:26 Oxygen Delivery Room Air 11/21/23 10:26 Temperature 97.9 F 11/21/23 10:26 Pulse Rate 79 11/21/23 16:16 Respiratory Rate 15 11/21/23 16:16 Blood Pressure 121/69 11/21/23 16:16 Pulse Oximetry 90 11/21/23 13:48 Oxygen Delivery Room Air 11/21/23 12:28 Medical Decision Making MDM Narrative Medical decision making narrative: -Course: 73-year-old female presenting with 1 year of left-sided chest/breast pain. Workup here including troponins, BMP, CT PE all negative. Pain is likely noncardiac. Patient is a good candidate for further outpatient management. Discharged primary care follow-up -DDX includes but is not limited to: ACS, chest wall pain, PE, pleurisy, pneumonia -Independent interpretation of studies: Labs reviewed within normal limits. Dimer elevated at 0.[address] PE without evidence of pulmonary embolism pneumonia. Independent EKG interpretation: Rhythm [sinus], Rat
[2023-11-21 14:17] LABS: Troponin I < 0.012 ng/mL (0.000-0.034)
[2023-11-21 15:47] LABS: D Dimer 0.82 ug/mL (<0.48)
--- NOTE | 2023-11-21 16:44 | ECG_ITS ---
SEE SCANNED COPY FOR CONFIRMED REPORT MTDD
[2023-11-21 17:51] LABS: Troponin I < 0.012 ng/mL (0.000-0.034)
[2023-11-21 19:43] LABS: NT Pro B Type Natriuretic Pept 67 pg/mL (19.9-100)
== END 2023-11-21 18:30 | disposition home or self-care (01) ==
PROVIDERS: Student in an Organized Health Care Education/Training Program; Emergency Provider Emergency Medicine; PCP Family Medicine
DX: R07.89 Other chest pain (principal); I10 Essential (primary) hypertension; E78.2 Mixed hyperlipidemia; M16.11 Unilateral primary osteoarthritis, right hip; F41.9 Anxiety disorder, unspecified; Z96.611 Presence of right artificial shoulder joint; Z96.651 Presence of right artificial knee joint
CPT/HCPCS: 36415; 71046; 71275; 80053; 83690; 83880; 84484; 85025; 85380; 85610; 85730; 93005; 99284; Q9967

== ENCOUNTER 2023-11-27 09:56 | Outpatient (CLI) | payer OTHER, SELFPAY ==
[2023-11-27 11:45] LABS: Free T4 Free Thyroxine 1.02 ng/mL (0.78-2.19)
[2023-11-27 11:52] LABS: Thyroid Stimulating Hormone 0.157 uIU/mL (0.465-4.680)
== END 2023-11-27 09:57 | disposition home or self-care (01) ==
LOC: ANHGOSHLAB 09:57
PROVIDERS: PCP Family Medicine; Visit Provider Family Medicine
DX: E05.90 Thyrotoxicosis, unspecified without thyrotoxic crisis or storm (principal)
CPT/HCPCS: 36415; 84439; 84443

== ENCOUNTER 2023-11-30 10:23 | Outpatient (CLI) | payer OTHER, SELFPAY ==
[2023-12-06 19:13] LABS: Thyroid Stimulating Immunoglob <89 % baseline (<140)
[2023-12-12 19:59] LABS: Thyrotropin Receptor Antibody <1.00 IU/L (< OR = 2.00)
== END 2023-11-30 10:24 | disposition home or self-care (01) ==
LOC: ANHGOSHLAB 10:24
PROVIDERS: PCP Family Medicine; Visit Provider Family Medicine
DX: E05.90 Thyrotoxicosis, unspecified without thyrotoxic crisis or storm (principal)
CPT/HCPCS: 36415; 83519; 84445

== ENCOUNTER 2023-12-19 13:17 | Outpatient (CLI) | payer OTHER, SELFPAY ==
--- NOTE | ~2023-12-19 | NM_ITS ---
EXAMINATION: NM thyroid scan w uptake DATE: 12/20/2023 14:02 INDICATION: Thyrotoxicosis, unspecified without thyrotoxic crisis. COMPARISON: Chest CT 11/21/2023 TECHNIQUE: 0.370 mCi I-123 was administered orally. Scintigraphic images of the thyroid gland were o btained at 24 hours. Thyroid uptake was calculated by the technologist. FINDINGS: The thyroid uptake is 21% (normal 10-30%), with the right lobe measuring 12% uptake and the left 10%. There is no focal area of decreased or increased activity to suggest hypofunctioning or hyperfunctio waleska nodule. IMPRESSION: 1. Normal thyroid scintigraphy and 24-hour iodine uptake. Reviewed, dictated and finalized at location A.
== END 2023-12-19 13:18 | disposition home or self-care (01) ==
PROVIDERS: PCP Family Medicine; Visit Provider Family Medicine
DX: E05.90 Thyrotoxicosis, unspecified without thyrotoxic crisis or storm (principal)
CPT/HCPCS: 78014; A9516

== ENCOUNTER 2024-01-18 08:49 | Outpatient (CLI) | payer OTHER, SELFPAY ==
--- NOTE | ~2024-01-18 | NM_ITS ---
EXAMINATION: NM cyndi stress w perfusion DATE: 01/18/2024 11:49 INDICATION: Other forms of dyspnea TECHNIQUE: Rest images were obtained following intravenous administration of 10.3 mCi Tc99m tetrofosm in (Myoview). The patient was infused intravenously with Lexiscan (Regadenoson). Then, 32.7 mCi Tc99m tetrofosmin (Myoview) was administered intravenously, and stress images were obtained. Data was harman nstructed into short axis and horizontal and vertical long axis SPECT images. Gated SPECT images were also obtained. COMPARISON: None. FINDINGS: There is a small region of mild decreased activity on the gated and non gated post stress i mages at the mid anterolateral segment consistent with ischemia. Evaluation is however compensated by significant exaggeration of activity along the inferior heart resulting from prominent activity in t he liver as well as some diaphragmatic attenuation artifact along the anterior wall. Prone imaging wa s not obtained. Normal left ventricular chamber size, wall motion and ejection fraction. Left ventri cular ejection fraction measures >70%. IMPRESSION: 1. Possible small region of mild ischemia at the mid anterolateral segment however confidence is decr eased by superimposed breast attenuation artifact and exaggeration of activity along the inferior wal l related to prominent activity in the liver. 2. Left ventricular ejection fraction measuring >70%. Reviewed, dictated and finalized at location A. IMPRESSION: 1. Possible small region of mild ischemia at the mid anterolateral segment moran huma confidence is decreased by superimposed breast attenuation artifact and exa ggeration of activity along the inferior wall related to prominent activity in the liver. 2. Left ventricular ejection fraction measuring >70%.
--- NOTE | 2024-01-18 09:03 | EST_ITS ---
Patient Info Name: Rochelle Balderrama Age: 73 years : 1950 Gender: Female Ht: 60 in Wt: 161 lbs BSA: 1.79 m2 HR: 81 bpm BP: 120 / 69 mmHg Exam Date: 01/18/2024 10:03 AM Exam Location: Echo Lab Patient Status: Outpatient Admit Date: 01/18/2024 Staff Ordering Physician: Pop Dooley DO Attending Provider: Pop Dooley DO Exercise Technologist: Noemy Heredia [facility] Exercise Physician: Ad Washington DO Exam Type: CA stress cyndi w NM Study Info A regadenoson stress test was performed. Summary 1. 1. Negative lexiscan stress test for ischemic ST changes by ECG criteria. 2. 2. Stable hemodynamics throughout the test. 3. 3. Nuclear scan to follow and will be reported separately. Please correlate with it. 4. 4. Patient informed of the above results. Protocol: Lexiscan Stress ECG Details Stage: REST Duration (min): 4 min : 20 sec HR (bpm): 82 SBP (mmHg): 120 DBP (mmHg): 69 Stage: REST Duration (min): 8 min : 2 sec HR (bpm): 75 SBP (mmHg): 120 DBP (mmHg): 69 Stage: STAGE 1 Duration (min): 0 min : 59 sec HR (bpm): 91 SBP (mmHg): 120 DBP (mmHg): 69 Stage: RECOVERY Duration (min): 1 min : 0 sec HR (bpm): 92 SBP (mmHg): 120 DBP (mmHg): 69 Stage: RECOVERY Duration (min): 2 min : 0 sec HR (bpm): 92 SBP (mmHg): 120 DBP (mmHg): 69 Stage: RECOVERY Duration (min): 3 min : 0 sec HR (bpm): 89 SBP (mmHg): 139 DBP (mmHg): 65 Stage: RECOVERY Duration (min): 3 min : 22 sec HR (bpm): 93 SBP (mmHg): 139 DBP (mmHg): 65 Rest HR: 75 bpm Peak HR: 93 bpm Rest Sys BP: 120 mmHg Peak Sys BP: 139 mmHg Max Pred HR: 145 bpm % Max Pred HR: 64 % Target HR: 123 bpm Max RPP: 12,927 bpm*mmHg Termination Reason: Completed protocol Cardiac Symptoms: Shortness of breath Total Time: 1 min : 0 sec Rest Umanzor BP: 69 mmHg Peak Umanzor BP: 65 mmHg Total Dose: 0.4 mg Resting ECG Sinus rhythm, IRBBB. Stress ECG No ST changes. Arrhythmias None. Report Signatures
== END 2024-01-18 08:50 | disposition home or self-care (01) ==
LOC: ANHCARD 08:53
PROVIDERS: PCP Family Medicine; Visit Provider Family Medicine
DX: R06.09 Other forms of dyspnea (principal)
CPT/HCPCS: 78452; 93017; A9502; J2785

== ENCOUNTER 2024-01-22 08:46 | Outpatient (CLI) | payer OTHER, SELFPAY ==
[2024-01-22 19:27] LABS: Thyroid Stimulating Hormone Reflex 0.914 uIU/mL (0.465-4.68)
== END 2024-01-22 08:47 | disposition home or self-care (01) ==
LOC: ANHGOSHLAB 08:47
PROVIDERS: PCP Family Medicine; Visit Provider Family Medicine
DX: E78.2 Mixed hyperlipidemia (principal); Z13.29 Encounter for screening for other suspected endocrine disorder
CPT/HCPCS: 36415; 84443

== ENCOUNTER 2024-01-29 09:43 | Outpatient (CLI) | payer OTHER, SELFPAY ==
--- NOTE | ~2024-01-29 | US_ITS ---
EXAMINATION: US thyroid DATE: 01/29/2024 10:01 INDICATION: Thyrotoxicosis, unspecified without thyrotoxic crisis. TECHNIQUE: Multiple ultrasound images of the thyroid were obtained. COMPARISON: None. FINDINGS: The right thyroid lobe measures 5.0 x 1.7 x 1.9 cm. The left thyroid lobe measures 5.4 x 1.8 x 1.4 c m. In the left thyroid lobe, there is a 6 mm solid, hypoechoic, wider than tall nodule with smooth m argin without echogenic foci (TI-RADS TR4). IMPRESSION: 1. Small thyroid nodule, likely not clinically significant. No follow-up is needed. Reviewed, dictated and finalized at location A. IMPRESSION: 1. Small thyroid nodule, likely not clinically significant. No follow-up is nee ded.
== END 2024-01-29 09:44 ==
LOC: GOSHIMG 09:43
PROVIDERS: PCP Family Medicine; Visit Provider Family Medicine
DX: E05.90 Thyrotoxicosis, unspecified without thyrotoxic crisis or storm (principal); E04.1 Nontoxic single thyroid nodule
CPT/HCPCS: 76536

== ENCOUNTER 2024-02-28 11:00 | Outpatient (CLI) | payer OTHER, SELFPAY ==
--- NOTE | ~2024-02-28 | XR_ITS ---
Left Knee Technique: AP, lateral, and sunrise views were obtained. Clinical History: Pain Findings: No fracture or dislocation is seen. Osseous alignment is anatomic. Minimal tricompartmental degenerative change present. Chondrocalcinosis of the menisci noted. No joint effusion is seen. Impression: Minimal tricompartmental degenerative change. Chondrocalcinosis of the menisci. Reviewed, dictated and finalized at location . Impression: Minimal tricompartmental degenerative change. Chondrocalcinosis of the menisci.
== END 2024-02-28 11:01 ==
PROVIDERS: PCP Orthopaedic Surgery; Visit Provider Orthopaedic Surgery
DX: M17.12 Unilateral primary osteoarthritis, left knee (principal); M11.262 Other chondrocalcinosis, left knee
CPT/HCPCS: 73564

== ENCOUNTER 2024-03-26 11:21 | Outpatient (CLI) | payer OTHER, SELFPAY ==
--- NOTE | ~2024-03-26 | MM_ITS ---
EXAMINATION: MM screening jeremy BI w nazia HISTORY: Screening TECHNIQUE: Craniocaudal and mediolateral oblique 3-D tomosynthesis images were obtained and synthetic 2-D images were generated. CAD analysis was submitted and interpreted. COMPARISON: Comparison to multiple prior studies sequentially, with oldest reviewed study dated 09/15. BREAST PARENCHYMAL COMPOSITION: Not dense: There are scattered areas of fibroglandular density. FINDINGS: There is no evidence of suspicious mass, calcification, or architectural distortion to sugg est malignancy in either breast. There has been no suspicious interval change. IMPRESSION: 1. No mammographic evidence of malignancy. 2. Recommend routine screening mammography in one year. BI-RADS Category 1: Negative Reviewed, dictated and finalized at location B.
== END 2024-03-26 11:22 | disposition home or self-care (01) ==
LOC: ANHIMG 11:23
PROVIDERS: PCP Family Medicine; Visit Provider Family Medicine
DX: Z12.31 Encounter for screening mammogram for malignant neoplasm of breast (principal)
CPT/HCPCS: 77063; 77067

== ENCOUNTER 2024-09-01 09:25 | Outpatient (CLI) | payer OTHER, SELFPAY | END 2024-09-01 09:26 | disposition home or self-care (01) | LOC: ANHIMG 09:31 | PROVIDERS: PCP Emergency Medicine; Visit Provider Emergency Medicine | DX: M85.89 Other specified disorders of bone density and structure, multiple sites (principal); Z78.0 Asymptomatic menopausal state | CPT/HCPCS: 77080 ==

== ENCOUNTER 2024-10-14 09:13 | Outpatient (CLI) | payer OTHER, SELFPAY ==
--- OUTSIDE RECORDS SUMMARY | 2024-10-14 09:40 | XMS_ITS | Continuity of Care Document ---
Author Organization [facility] Address [address] [place] [address] Phone Care Team Providers Care Immigration Law Specialist Name Role Phone Anya Gamino Unavailable Unavailable Advance Directives Directive Yes / No Effective Date File Name No Information Encounters Encounter Description Practice Location Reason(s) For Visit Diagnoses Date Provider Providers Copied on Encounter Formerly [facility], [address], [place], [place], [id number], [place] tel:[phone] [facility] No Information Aug-3 1-200 6 Hanny Joyner. [address] , [address], [place], [address], [place]. tel:[phone] Family History Family Member Type Diagnosis Age At Onset No Information Payers Payer name Insurance type Covered libertarian ID Authoriza tion(s) No Information Social History Type Description Quantity Date Captured Comments Sex Female Smoking Status No Information Chief Complaint And Reason For Visit No Information Reason For Referral Reason For Referral No Information History Of Present Illness Encounter Date Complaint History Of Prese nt Illness No Information Functional Status Date Functional Assessmen t No Information Instructions Date Instruction Additional Infor mation No Information Assessments Type Assessment Date No Information Patient Care Teams Name Effective Dates (start - stop) Status Members No Information
[2024-10-14 11:09] LABS: Basophils Absolute Auto 0.1 K/mm3 (0.0-0.1); Eosinophils Percent Auto 0.5 % (0-4.4); Hematocrit 37.7 % (37.0-47.0); Hemoglobin 12.2 g/dL (12.0-15.0); Immature Granulocyte Absolute 0.01 K/mm3 (0.00-0.031); Immature Granulocyte Percent A 0.2 % (0-0.5); Lymphocytes Absolute Auto 1.39 K/mm3 (0.9-3.2); Lymphocytes Percent Auto 22.2 % (18.3-44.2); Mean Corpuscular HGB Conc 32.4 g/dl (32-36); Mean Corpuscular Hemoglobin 32.1 pg (26-34); Mean Corpuscular Volume 99.2 fl (80-100); Mean Platelet Volume 8.9 fl (7.4-10.4); Monocytes Absolute Auto 0.5 K/mm3 (0.1-0.6); Monocytes Percent Auto 7.8 % (2.6-8.5); Neutrophils Absolute Auto 4.3 K/mm3 (1.3-6.7); Neutrophils Percent Auto 68.3 % (45.5-73.1); Platelet Count Result 359 k/mm3 (150-375); Red Cell Distribution Width 13.2 % (11.5-14.5); White Blood Count 6.3 K/mm3 (4.5-10.0)
[2024-10-14 12:02] LABS: Alanine Aminotransferase 17 U/L (6-35); Albumin Level 4.3 g/dL (3.5-5.1); Alkaline Phosphatase 83 U/L (38-126); Anion Gap 7 mmol/L (4-12); Aspartate Amino Transferase 37 U/L (14-36); Bilirubin,Total 0.5 mg/dL (0.2-1.3); Blood Urea Nitrogen 15 mg/dL (7-17); Calcium 9.8 mg/dL (8.4-10.2); Carbon Dioxide 28 mmol/L (22-30); Chloride 102 mmol/L (98-107); Cholesterol 193 mg/dL (0-200); Estimated Glomerular Filt Rate > 60; Glucose 89 mg/dL (65-110); HDL Direct 87 mg/dL; Potassium 4.5 mmol/L (3.4-5.0); Sodium 137 mmol/L (137-145); Triglycerides 83 mg/dL (<150); Vitamin D 25 Hydroxy 57.4 ng/mL
[2024-10-14 12:13] LABS: LDL Cholesterol Direct 73 mg/dL
[2024-10-15 14:34] LABS: Red Blood Cell Folate 600 ng/mL RBC (>280)
== END 2024-10-14 09:14 | disposition home or self-care (01) ==
LOC: ANHGOSHLAB 09:13
PROVIDERS: PCP Emergency Medicine; Visit Provider Emergency Medicine
DX: E78.5 Hyperlipidemia, unspecified (principal); I10 Essential (primary) hypertension; E53.8 Deficiency of other specified B group vitamins; E55.9 Vitamin D deficiency, unspecified
CPT/HCPCS: 36415; 80053; 80061; 82306; 82607; 82747; 85025

== ENCOUNTER 2025-03-03 10:54 | Outpatient (CLI) | payer OTHER, SELFPAY ==
[2025-03-03 15:22] LABS: Hematocrit 39.0 % (37.0-47.0); Hemoglobin 12.5 g/dL (12.0-15.0); Immature Granulocyte Percent A 0.3 % (0-0.5); Lymphocytes Absolute Auto 1.52 K/mm3 (0.9-3.2); Mean Corpuscular HGB Conc 32.1 g/dl (32-36); Mean Corpuscular Hemoglobin 32.1 pg (26-34); Mean Corpuscular Volume 100.3 fl (80-100); Nucleated Red Blood Cells Absolute Auto 0.000 K/mm3 (0.0-0.012); Nucleated Red Blood Cells Perc 0.0 % (0.0-0.2); Platelet Count Result 318 k/mm3 (150-375); Red Blood Count 3.89 M/mm3 (4.2-5.4); White Blood Count 7.1 K/mm3 (4.5-10.0)
[2025-03-03 16:02] LABS: Hemoglobin A1C 5.1 % (<5.7)
[2025-03-03 16:09] LABS: Alanine Aminotransferase 13 U/L (6-35); Albumin Level 4.3 g/dL (3.5-5.1); Alkaline Phosphatase 96 U/L (38-126); Anion Gap 7 mmol/L (4-12); Aspartate Amino Transferase 46 U/L (14-36); Bilirubin,Total 0.5 mg/dL (0.2-1.3); Blood Urea Nitrogen 18 mg/dL (7-17); Calcium 10.0 mg/dL (8.4-10.2); Carbon Dioxide 25 mmol/L (22-30); Chloride 103 mmol/L (98-107); Cholesterol 208 mg/dL (0-200); Estimated Glomerular Filt Rate > 60; Glucose 87 mg/dL (65-110); HDL Direct 75 mg/dL; Potassium 4.6 mmol/L (3.4-5.0); Sodium 135 mmol/L (137-145); Total Protein 8.3 g/dL (6.3-8.2); Triglycerides 125 mg/dL (<150)
[2025-03-03 18:58] LABS: MALB Creatinine Ratio 13.3 mg/g (0-30)
== END 2025-03-03 10:55 | disposition home or self-care (01) ==
LOC: ANHGOSHLAB 10:55
PROVIDERS: PCP Emergency Medicine; Visit Provider Emergency Medicine
DX: E78.5 Hyperlipidemia, unspecified (principal); I10 Essential (primary) hypertension; E11.9 Type 2 diabetes mellitus without complications; E55.9 Vitamin D deficiency, unspecified
CPT/HCPCS: 36415; 80053; 80061; 82043; 82306; 83036; 85025

== ENCOUNTER 2025-06-30 15:33 | Emergency (ER) | payer OTHER, SELFPAY ==
--- NOTE | 2025-06-30 16:07 | ED.URI ---
HPI - URI/Sore Throat General Chief Complaint: Upper Respiratory Infection Stated Complaint: Sinus Infection Symptoms Time Seen by Provider: 06/30/25 15:50 Source: patient and RN notes reviewed Mode of arrival: ambulatory Limitations: no limitations History of Present Illness HPI Narrative: 74-year-old female presents to the [facility] complaining of upper respiratory symptoms for little over 1 week. Patient reports cough, congestion, sinus pressure, mucopurulent nasal drainage. Patient has any fevers, body aches, chills, nausea, vomiting, chest pain, difficulty breathing or any other symptoms. Patient has tried [id number] cold and flu medication without relief. Patient has a history of hypertension and hyper lipidemia. Related Data Home Medications ?Medication ?Instructions ?Recorded ?Confirmed ?Last Taken ?Type calcium carbonate 600 mg PO DAILY 07/14/24 02/23/25 Unknown History lutein 20 mg tablet 20 mg PO DAILY 07/14/24 02/23/25 Unknown History mecobalamin (vitamin B12) 1,000 1,000 mcg PO DAILY 07/14/24 02/23/25 Unknown History mcg chewable tablet cholecalciferol (vitamin D3) 100 100 mcg PO DAILY 09/04/24 02/23/25 Unknown History mcg (4,000 unit) tablet Allergies Allergy/AdvReac Type Severity Reaction Status Date / Time No Known Allergies Allergy Verified 06/30/25 15:45 Review of Systems Review of Systems: CONSTITUTIONAL: Denies fever, chills, or sweats. EYES: Denies visual changes, redness, or discharge. ENT: Denies rhinorrhea, sore throat, or otalgia. Positive for congestion, mucopurulent nasal drainage, sinus pressure. CARDIOVASCULAR: Denies chest pain, palpitations, or edema. RESPIRATORY: Positive for cough. Negative for wheezing or Dyspnea. GASTROINTESTINAL: Denies abdominal pain, nausea, vomiting, or diarrhea. GENITOURINARY: Denies dysuria or hematuria. SKIN: Denies rash or itching. MUSCULOSKELETAL: Denies back pain, joint pain, or myalgia. NEUROLOGIC: Denies headache, numbness, or weakness. PSYCHIATRIC: Denies anxiety or depression. All other systems reviewed are negative, except as documented in HPI. 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 shoulder joint History of open reduction and internal fixation (ORIF) procedure Family History Family History Father Acute myocardial infarction Other Family history of arthritis Social History Social History Smoking status: Never smoker Second hand tobacco smoke exposure: No Alcohol intake: never Substance use: never Substance use type: does not use Lack of Transportation: No Lack of Food: Never True Current Housing: I Have Housing Concerned About Future Housing: No Difficulty Paying Gas/Electric Bills: No Difficulty Paying for Meds: No Currently Unemployed: No Education: High School Diploma/GED Difficulty w/ Childcare or Family Care: No Living arrangements: with family Additional living arrangements comments: Occupation/Education: retired Gender identity (if verbalized by the patient): Female Spiritual care concerns: No Agree to blood products: Yes Comments At the time of my signature, I reviewed and agree with the nursing past medical, surgical, social, and family history. There is no relevant family history pertinent to the patient complaint. Exam Narrative: GENERAL: This is a well-nourished, well-developed adult, in no apparent distress. They are non ill-appearing, nontoxic appearing. HEAD: normocephalic, atraumatic. EYES: Sclera clear/white. Conjunctiva normal. Vision is grossly intact. Extraocular movements intact EARS: External ears normal, auditory canals clear and without drainage, TMs normal without perforation. Hearing grossly intact. NOSE: External nose normal with no obvious nasal discharge, nasal turbinates erythematous, no rhinorrhea. THROAT: Mucous membranes moist, posterior pharynx erythematous with PND. Uvula midline. NECK: Neck supple, non-tender without lymphadenopathy, masses or thyromegaly. CARDIOVASCULAR: Regular rate and rhythm without murmurs, gallops, or rubs. RESPIRATORY: Clear to auscultation. Breath sounds equal bilaterally. No wheezes, rales, or rhonchi. SKIN: warm, Dry, intact with no suspicious lesions or rash, good texture and turgor. NEURO: awake, alert, and oriented to person, place and time. There were no obvious focal neurologic abnormalities. EXTREMITIES: No joint tenderness, effusion, or edema noted. BACK: Nontender without deformity. Course Course Level of Care: Express Care Visit [facility] Narrative Medical decision making narrative: Rapid COVID and flu were negative. Given length of symptoms likely patient has bacterial sinusitis. Will treat with Augmentin. Discussed physical exam findings. Advised supportive measures and signs/symptoms to go to the ER. Pt is appropriate for outpt treatment and f/u. Differential Diagnosis Differential Diagnosis: Differential diagnostic considerations for upper respiratory infection include upper respiratory infection, croup, otitis media, sinusitis, viral infection, bronchitis, influenza, pharyngitis, strep, uvulitis. Lab Data [facility] Lab Attestation statement: I personally reviewed the patient's lab results. Critical Care Time Critical Care Time Critical Care Time: No Discharge Plan Discharge Clinical Impression: Sinusitis Qualifiers: Sinusitis location: unspecified location Chronicity: acute Recurrence: non-recurrent Qualified Code(s): J01.90 - Acute sinusitis, unspecified Patient Disposition: Home Condition: Stable Instructions: Antibiotic Form, Sinusitis (ED) Additional Instructions: Your COVID and flu were negative today. Take the antibiotics as directed and complete the course even if you start to feel better. You may use a Neti pot saline rinse 3 times a day with lukewarm distilled water Continue to take Tylenol or Motrin as needed for pain or fevers. Follow instructions on the bottle. Use a humidifier or vaporizer at night. Drink plenty of water. 8-10 glasses per day. Use flonase 2 times per day for 5 days then as needed Take mucinex 2 times per day and be sure to take with 8oz of water. Follow up with Primary provider in 3-5 days Please go to the ER if he develops any difficulty breathing, chest pain, vomiting, confusion, weakness, worsening symptoms, or any other concerns Patient Language: Belarusian Prescriptions: New amoxicillin-pot clavulanate 875-125 mg tablet 1 tablet PO Q12H 7 Days Qty: 14 0RF No Action calcium carbonate 600 mg calcium (1,500 mg) tablet 600 mg PO DAILY lutein 20 mg tablet 20 mg PO DAILY Rx Instructions: give with meal/snack mecobalamin (vitamin B12) 1,000 mcg tablet,chewable 1,000 mcg PO DAILY cholecalciferol (vitamin D3) 100 mcg (4,000 unit) tablet 100 mcg PO DAILY escitalopram oxalate 5 mg tablet 5 mg PO DAILY Qty: 90 4RF trazodone 50 mg tablet See Rx Instructions .ROUTE .COMPLEX Qty: 90 2RF Dose Instruction: TAKE 1 TABLET BY MOUTH AT BEDTIME Rx Instructions: TAKE 1 TABLET BY MOUTH AT BEDTIME lisinopril 20 mg tablet See Rx Instructions .ROUTE .COMPLEX Qty: 90 2RF Dose Instruction: TAKE 1 TABLET BY MOUTH DAILY Rx Instructions: TAKE 1 TABLET BY MOUTH DAILY fluticasone propionate 50 mcg/actuation spray,suspension See Rx Instructions .ROUTE .COMPLEX Qty: 16 5RF Dose Instruction: ADMINISTER 2 SPRAYS INTO EACH NOSTRIL DAILY Rx Instructions: ADMINISTER 2 SPRAYS INTO EACH NOSTRIL DAILY pravastatin 40 mg tablet See Rx Instructions .ROUTE .COMPLEX Qty: 90 2RF Dose Instruction: TAKE 1 TABLET BY MOUTH AT BEDTIME Rx Instructions: TAKE 1 TABLET BY MOUTH AT BEDTIME tramadol 50 mg tablet 50 mg PO BID PRN (Reason: pain) Qty: 60 0RF Follow-up/Referrals: Bravo Kang MD [Primary Care Provider, Internal Medicine] Time of Disposition: 16:05
[2025-06-30 16:09] VITALS: BP 113/72; PULSE 81; RESP 16; TEMP 36.4; O2SAT 100
[2025-06-30 16:13] LABS: EDCOVIDSCREEN Negative (Negative); EDINFLUASCREEN Negative (Negative); EDINFLUBSCREEN Negative (Negative)
== END 2025-06-30 16:15 | disposition home or self-care (01) ==
PROVIDERS: PCP Emergency Medicine
DX: J01.90 Acute sinusitis, unspecified (principal); Z20.822 Contact with and (suspected) exposure to COVID-19; I10 Essential (primary) hypertension; E78.5 Hyperlipidemia, unspecified; M16.11 Unilateral primary osteoarthritis, right hip; Z86.16 Personal history of COVID-19; Z96.651 Presence of right artificial knee joint; Z96.611 Presence of right artificial shoulder joint
CPT/HCPCS: 87426; 87804; 99213; G0463